=== PATIENT | male | born 1970 | race Caucasian/White ===

== ENCOUNTER → 2020-05-14 08:26 | Outpatient (BNVA) | payer SELFPAY | PROVIDERS: PCP Internal Medicine; Visit Provider Physician Assistant | DX: Z76.89 Persons encountering health services in other specified circumstances (principal) ==

== ENCOUNTER 2021-01-07 15:36 | Outpatient (REF) | payer OTHER, SELFPAY ==
--- NOTE | ~2021-01-07 | XR_ITS ---
EXAMINATION: XR KNEE, RIGHT CLINICAL INFORMATION: Pain right knee COMPARISON: Radiographs right knee 02/16/2015 TECHNIQUE: Four views of the right knee. FINDINGS: There is no fracture, dislocation, or destructive process. Again, there is tricompartment degenerative osteoarthritis with joint narrowing greatest lateral compartment. There is associated lateral chondrocalcinosis. No erosive change. Osteophytes are present from the femoral condyles and tibial plateau, increased since 2015. There is a small suprapatellar effusion. Hoffa's fat pad appears normal. There is a stable benign-appearing circumscribed oval subcortical lesion posterior lateral distal femur measuring approximately 2 x 4.8 cm. The periphery is mildly sclerotic and circumscribed in the internal portion is similar to slightly increased in attenuation. 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 No periostitis or endosteal scalloping. XR/XR knee RT 4V IMPRESSION: 1. Tricompartment osteoarthritis, greatest lateral compartment. Small suprapatellar effusion. 2. 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 No periostitis or destructive process.
== END 2021-01-07 15:37 | disposition home or self-care (01) ==
LOC: HO.HMGCX 15:36
PROVIDERS: PCP Internal Medicine; Visit Provider Hospitalist
DX: M25.561 Pain in right knee (principal)
CPT/HCPCS: 73564

== ENCOUNTER → 2021-01-11 08:07 | Outpatient (BNVA) | payer OTHER, SELFPAY | PROVIDERS: PCP Internal Medicine; Visit Provider Orthopaedic Surgery | DX: S76.111A Strain of right quadriceps muscle, fascia and tendon, initial encounter (principal); V68.4XXA Person boarding or alighting a heavy transport vehicle injured in noncollision transport accident, initial encounter; Y93.9 Activity, unspecified; Y92.9 Unspecified place or not applicable; Y99.8 Other external cause status | CPT/HCPCS: 99202 ==

== ENCOUNTER → 2021-01-24 08:05 | Outpatient (BNVA) | payer OTHER, SELFPAY | PROVIDERS: Visit Provider Physician Assistant | DX: S76.111D Strain of right quadriceps muscle, fascia and tendon, subsequent encounter (principal) | CPT/HCPCS: 99212 ==

== ENCOUNTER 2021-05-28 19:30 | Emergency (ER) | payer OTHER, SELFPAY ==
--- NOTE | 2021-05-28 19:42 | ED.EYEPROB ---
HPI - Eye Problem General Chief complaint: Eye Problems Stated complaint: Metal in eye Time Seen by Provider: 05/28/21 19:42 Source: patient Mode of arrival: ambulatory Limitations: no limitations History of Present Illness HPI Narrative: 50-year-old male no known medical history presents the emergency department with a foreign body to his left eye since 12/14 this morning. Patient tells me he was working on his car was chipping metal any felt like a small piece of metal got into his left eye. He denies vision changes, double vision, pain to the eye. He does tell me he feels as though there is a foreign body in his eye. Patient does not were contact lenses. At the time that this occurred he was wearing safety glasses however the metal came in on the side. MD chief complaint: foreign body Onset (ago): hour(s) (13) Onset description: sudden Duration: constant Location: left eye Eye Symptoms: foreign body sensation Place: home Mechanism: occurred while hammering/grinding (Grinding metal) Severity: mild Severity scale (1-10): 2 If Pain, Quality: other (Constant foreign body sensation) Associated symptoms: none Treatments Prior to Arrival: none Related Data Previous Rx's Medication Instructions Recorded prednisone 20 mg tablet 20 mg PO .COMPLEX #18 tab 01/07/21 erythromycin 5 mg/gram (0.5 %) eye 1 appl OPHTHALMIC-LEFT DAILY 7 05/28/21 ointment Days #3.5 g Allergies Allergy/AdvReac Type Severity Reaction Status Date / Time No Known Allergies Allergy Verified 01/24/21 08:09 Review of Systems Review of Systems: Constitutional : No Fever, No Chills, Cardiovascular : No Chest Pain, No SOB Respiratory : No Dyspnea Gastrointestinal : No abdominal pain HEENT: + metal in eye, no vision changes, no pain with eye moement Musculoskeletal : No Joint Swelling Skin : No rash, No skin laceration Neuro : No Weakness, No Numbness Psych : No SI/HI Yes all other systems are reviewed and are negative [facility] Past Medical History Attestation statement: The following information was validated with the patient. Source: old records reviewed and nursing notes reviewed Surgical History S/P left knee arthroscopy S/P right knee arthroscopy Social History Social History Advance Directives: No Advance Directives Information Provided: Yes Current occupational status: employed Current occupation: [employer] Physical Exam Vital Signs: Vital Signs: Last Vital Signs Temp 98.7 F 05/28/21 19:49 Pulse 68 05/28/21 19:49 Resp 16 05/28/21 19:49 BP 156/99 H 05/28/21 19:49 Pulse Ox 98 05/28/21 19:49 BMI result Body Mass Index 28.2 VSS Appearance: Alert.? Oriented X3.? No acute distress.? Head: Normocephalic, atraumatic, no step-offs or deformities Eyes: Pupils equal, round and reactive to light.? ENT: Pharynx normal.?+ fb in eye image in left eye. (I can visualize to small metal chips in the 3 o'clock position.) Fluorescein stain with no uptake bilaterally. No rust rings. Extraocular movements intact free of pain. Visual quintero by confrontation normal. Neck: Normal inspection.? Neck supple.? CVS: Normal heart rate and rhythm.? Pulses normal.? Respiratory: No respiratory distress.? Breath sounds normal.? Abdomen: Soft and nontender.? Skin: Skin warm and dry.? Normal skin color.? Normal skin turgor.? Extremities: No lower extremity edema.? No calf ttp. 5/5 strength to bilateral upper and lower extremities Back: No midline tenderness, no C-spine tenderness, full range of motion, no CVA tenderness bilaterally Neuro: Oriented X 3.? No motor deficit.? No sensory deficit. Course Reevaluation(s) Reevaluation #1: Successfully removed 2 small metal chips from patient's L. eye they were located in the 3 o'clock position no rust rings. No uptake with fluorescein stain. One was removed with a Q-tip the other 1 was removed by using an 18 gauge needle. Patient tolerated procedure well. Erythromycin ointment was applied to the affected eye. He will be discharged home on erythromycin ointment he should use this for 5-7 days. I have advised him to follow-up with ophthalmology. Time: 20:13 MDM - Eye Problem MDM Narrative Medical decision making narrative: 194 50 yo male presents to ED w/ fb in eye, thinks its metal. PE foreign body in eye Plan, fluorescein stain, Wood's lamp, removal of foreign body. Medical Records Attestation: I reviewed the patient's medical records. Lab Data Attestation: I reviewed the patient's lab results. Critical Care Time Critical Care Time Critical Care Time: No Discharge Plan Discharge Clinical Impression: Eye foreign body Qualifiers: Encounter type: initial encounter Laterality: unspecified laterality Qualified Code(s): T15.90XA - Foreign body on external eye, part unspecified, unspecified eye, initial encounter Patient Disposition: Home, Self-Care Instructions: Eye Foreign Body (ED) Additional Instructions: Take your medications as prescribed. If you were prescribed antibiotics today, it is important that you take your medication to their entirety, do not skip any doses, do not finish them early. Follow-up with your primary care provider this week. Return to the emergency department with new or worsening symptoms. In case of emergency call 911 Prescriptions: New erythromycin 5 mg/gram (0.5 %) ointment 1 appl ophthalmic-Left DAILY 7 Days Qty: 3.5 RF: 0 No Action prednisone 20 mg tablet 20 mg PO .COMPLEX Qty: 18 RF: 0 Referrals: Yakov Lal [Physician] - 2 days Alfredo Sandy MD [Primary Care Provider] - 2 days Stand Alone Forms: Work/School Release
[2021-05-28 19:49] VITALS: BP 156/99; PULSE 68; RESP 16; TEMP 37.1; O2SAT 98; BMI 28.2
[2021-05-28] MEDS: Fluorescein Sodium STRIP 1 STRIP EYE-BOTH (19:53)
[2021-05-28] MEDS: Tetracaine HCl/PF 0.5% Oph Sol 4 ML DROPS 1 DROP EYE-BOTH (19:53)
[2021-05-28] MEDS: Erythromycin Base 0.5% Oph Oin 1 GM TUBE 1 CM EYE-LEFT (20:27)
== END 2021-05-28 20:34 | disposition home or self-care (01) ==
PROVIDERS: Emergency Provider Internal Medicine; PCP Internal Medicine
DX: T15.02XA Foreign body in cornea, left eye, initial encounter (principal); H57.12 Ocular pain, left eye; X58.XXXA Exposure to other specified factors, initial encounter; Y93.9 Activity, unspecified; Y92.9 Unspecified place or not applicable; Y99.9 Unspecified external cause status; Z79.899 Other long term (current) drug therapy
CPT/HCPCS: 65222; 99283

== ENCOUNTER → 2022-05-08 13:13 | Outpatient (BNVA) | payer SELFPAY | PROVIDERS: PCP Internal Medicine; Visit Provider Physician Assistant | DX: Z02.79 Encounter for issue of other medical certificate (principal) ==

== ENCOUNTER 2023-12-08 15:49 | Outpatient (AMB) | payer OTHER, SELFPAY ==
--- OUTSIDE RECORDS SUMMARY | 2023-12-08 15:51 | XMS_ITS | Continuity of Care Document ---
Author Organization [facility] Address Unknown Care Team Providers Care Is Project Manager Name Role Phone Alfredo Sandy MD Primary Care Physician Encounter [facility] [place] [facility] R [id number] Date(s): 05/31/21 - 08/22/21 [facility] Attending Physician: Silvia Regalado MD Referring Physician: Alfredo Sandy MD Allergies, Adverse Reactions, Alerts No Known Allergies Immunizations Given and Recorded Vaccine Date Status Refusal Reason SARS-CoV-2 (COVID-19) mRNA BNT-162b2 vac 04/15/21 Recorded SARS-CoV-2 (COVID-19) mRNA BNT-162b2 vac 07/23/20 Recorded SARS-CoV-2 (COVID-19) mRNA BNT-162b2 vac 07/02/20 Recorded influenza virus vaccine, inactivated 03/01/21 Ryan rded influenza virus vaccine, inactivated 1 05/12/17 Re corded influenza virus vaccine, inactivated 2 04/09/16 Re corded Influenza Virus Vaccine (oldterm) 02/15/18 Recorde d tetanus/diphtheria/pertussis, acel(Tdap) 08/07/16 Given Tetanus Toxoid Vaccine (oldterm) 05/18/04 Given 1Result Comment: [08/10/2017] [facility] 2Result Comment: [08/07/2016] [facility] Problem List Condition Effective Dates Status Health Status Inform ant Diverticulosis, sigmoid mild/colonoscopy 2017(Confirmed) Active Ex-smoker(Confirmed) Active Family history of colon canc er mother 70(Confirmed) Active Overweight(Confirmed) Active Social History Social History Type Response Smoking Status Former smoker, quit more than 30 days ago; Tobacco use times per day: 1 PPD; Number of years: 25; Total pack years: 25; Started at age: 17; Stopped at age: 42; entered on: 09/07/18 Sex
--- OUTSIDE RECORDS SUMMARY | 2023-12-08 15:51 | XMS_ITS | Continuity of Care Document ---
Author Organization [facility] Address [address] [place] [address]- Care Team Providers Care Marshmallow Runner Name Role Phone Vika HENNESSY, Alfredo Scott Primary Care Physician [phone] Encounter [facility] [place] Date(s): 01/18/20 - 02/17/20 [facility] Adult [address] [place] [address]- [facility] Attending Physician: Admtr, Ar8 Admitting Physician: Admtr, Ar8 Referring Physician: Admtr, Ar8 Allergies, Adverse Reactions, Alerts Substance Reaction Severity Status NKA Active Immunizations Given and Recorded Vaccine Date Status Refusal Reason Influenza Virus Vaccine (oldterm) 02/15/18 Recorde d influenza virus vaccine, inactivated 1 05/12/17 Re corded influenza virus vaccine, inactivated 2 04/09/16 Re corded tetanus/diphtheria/pertussis, acel(Tdap) 08/07/16 Given Tetanus Toxoid Vaccine (oldterm) 05/18/04 Given 1Result Comment: [08/10/2017] [facility] 2Result Comment: [08/07/2016] [facility] Problem List Condition Effective Dates Status [...]
--- OUTSIDE RECORDS SUMMARY | 2023-12-08 15:51 | XMS_ITS | Continuity of Care Document ---
Author Organization [facility] Address [address] [place] [address]- Care Team Providers Care Working Foreman Name Role Phone Vika HENNESSY, Alfredo Scott Primary Care Physician Encounter [facility] [place] Date(s): 01/18/20 - 01/25/20 [facility] Adult [address] [place] [address]- [facility] Encounter Diagnosis Acute sinusitis(Discharge Diagnosis) - 01/18/20 Attending Physician: Nenita Sheldon NP Allergies, Adverse Reactions, Alerts Substance Reaction Severity Status NKA Active Immunizations Given and Recorded Vaccine Date Status Refusal Reason Influenza Virus Vaccine (oldterm) 02/15/18 Recorde d influenza virus vaccine, inactivated 1 05/12/17 Re corded influenza virus vaccine, inactivated 2 04/09/16 Re corded tetanus/diphtheria/pertussis, acel(Tdap) 08/07/16 Given Tetanus Toxoid Vaccine (oldterm) 05/18/04 Given 1Result Comment: [08/10/2017] [facility] 2Result Comment: [08/07/2016] [facility] Medications No Known Medications Problem List Condition Effective Dates Status Health Status Inform ant Diverticulosis, sigmoid mild/colonoscopy 2017(Confirmed) Active Ex-smoker(Confirmed) Active Family history of colon canc er mother 70(Confirmed) Active Overweight(Confirmed) Active Diagnosis Diagnosis Type Effective Dates Health Status Cl inical Service Informant Acute sinusitis Discharge Diagnosis 01/18/20 Vital Signs Most recent to oldest [Reference Range]: 1 Height 170.18 cm (01/18/20 7:13 AM) Weight 82.9 kg (01/18/20 7:13 AM) Oxygen Saturation [94-100 %] 97 % (01/18/20 7:13 AM) Pulse Rate [55-90 bpm] 65 bpm (01/18/20 7:13 AM) Body Mass Index [18.5-24.99] 28.62 *H* (01/18/20 7:13 AM) Blood Pressure [90-138/55-84 mm Hg] 128/ 86mm Hg (01/18/20 7:13 AM) Temperature [96.8-100.4 DegF] 98.6 DegF (01/18/20 7:13 AM) Mode of Delivery (Oxygen) Room air (01/18/20 7:13 AM) Blood pressure sites Arm, right (01/18/20 7:13 AM) Temperature Route Oral (01/18/20 7:13 AM) Weight Obtained Via Standing scale (01/18/20 7:13 AM) Social History Social History Type Response Smoking Status Former smoker, quit more than 30 days ago; Tobacco use times per day: 1 PPD; Number of years: 25; Total pack years: 25; Started at age: 17; Stopped at age: 42; entered on: 09/07/18 Sex
--- OUTSIDE RECORDS SUMMARY | 2023-12-08 15:51 | XMS_ITS | Continuity of Care Document ---
Author Organization [facility] Wally Deng Gerhard lt Address [address] [place] [address]- Care Team Providers Care Security Developer Name Role Phone Nenita Sheldon NP Primary Care Physician [phone] [place] [facility] [place](s[place] 07/28/23 - 08/04/23 [facility] Wally Deng Adult [address] [place] [address]- Encounter Diagnosis Bunion of left foot(Discharge Diagnosis) - 07/28/23 Annual physical exam(Discharge Diagnosis) - 07/28/23 Obese class I(Discharge Diagnosis) - 07/28/23 Impacted cerumen of right ear(Discharge Diagnosis) - 07/28/23 Elevated cholesterol- Low [place] Risk Score(Discharge Diagnosis) - 07/28/23 Attending Physician: Nenita Sheldon NP Referring Physician: Bridget HENNSESY, Brad Reyes Allergies, Adverse Reactions, Alerts No Known Allergies Immunizations Given and Recorded Vaccine Date Status Refusal Reason zoster vaccine, inactivated 06/05/23 Recorded zoster vaccine, inactivated 03/02/23 Recorded influenza virus vaccine, inactivated 02/19/23 Ryan rded influenza virus vaccine, inactivated 03/01/21 Ryan rded influenza virus vaccine, inactivated 03/10/19 Ryan rded influenza virus vaccine, inactivated 1 05/12/17 Re corded influenza virus vaccine, inactivated 03/09/17 Ryan rded influenza virus vaccine, inactivated 2 04/09/16 Re corded SARS-CoV-2 (COVID-19) mRNA BNT-162b2 vac 04/15/21 Recorded SARS-CoV-2 (COVID-19) mRNA BNT-162b2 vac 07/23/20 Recorded SARS-CoV-2 (COVID-19) mRNA BNT-162b2 vac 07/02/20 Recorded Influenza Virus Vaccine (oldterm) 02/15/18 Recorde d tetanus/diphtheria/pertussis, acel(Tdap) 08/07/16 Given Tetanus Toxoid Vaccine (oldterm) 05/18/04 Given 1Result Comment: [08/10/2017] [facility] 2Result Comment: [08/07/2016] [facility] Problem List Condition Confirmation Course Effective Dates Status H ealth Status Informant Bunion of left foot Confirmed Active Cervical radiculopathy Confirmed Active Diverticulosis, sigmoid mild/colonoscopy 2017 Confirmed Active Ex-smoker Confirmed Active Family history of colon cancer mother 70 Confirmed Active Elevated cholesterol- Low [place] Risk Score Confirmed Active Obese class I Confirmed Active Diagnosis Diagnosis Type Effective Dates Health Status Clinical Service Informant Annual physical exam Discharge Diagnosis 07/28/23 Obese class I Discharge Diagnosis 07/28/23 Elevated cholesterol- Low [place] Risk Score Discharge Diagnosis 07/28/23 Impacted cerumen of right ear Discharge Diagnosis 07/28/23 Bunion of left foot Discharge Diagnosis 07/28/23 Vital Signs Most recent to oldest [Reference Range]: 1 Height 170.18 cm (07/28/23 6:50 AM) Weight 90.3 kg (07/28/23 6:50 AM) Oxygen Saturation [94-100 %] 97 % (07/28/23 6:50 AM) Pulse Rate [55-90 bpm] 77 bpm (07/28/23 6:50 AM) Body Mass Index [18.5-24.99 kg/m2] 31.18 kg/m2 *>HHI* (07/28/23 6:50 AM) Blood Pressure [90-138/55-84 mm Hg] 131/ 80mm Hg (07/28/23 6:50 AM) Blood pressure sites Arm, left (07/28/23 6:50 AM) Weight Obtained Via Standing scale (07/28/23 6:50 AM) Social History Social History Type Response Smoking Status Former smoker, quit more than 30 days ago; Tobacco use times per day: 1 PPD; Number of years: 25; Total pack years: 25; Started at age: 17; Stopped at age: 42; entered on: 09/07/18 Sex Note * Donna Brar: PERFORM, SIGN, VERIFY Event Display: Patient Education/Instruction Authored Date: [id number] [facility] *BMP So Ish Stephens Clinical Summary Name SPRING CORTEZ Age 53 Years 1970 PCP [facility]en[facility] Sheld[id number] Visit Date 07/28/2023 06:40:00 Additional Instructions: Scheduled Appointments?? Future Appointments ?No Future Appointments Scheduled Follow-Up Instructions ?? With: Address: When: Nenita Sheldon NP In 1 year Diagnosis Other polyuria; Pure hypercholesterolemia, unspecified; Encounter for general adult medical examination without abnormal findings; Body mass index [BMI] 30.0- 30.9, adult; Impacted cerumen, right ear;Bunion of left foot Medications: Please continue your medications until treatment is completed or stopped by your provider. Discuss any questions related to medications with your provider. Allergy Info:?? NKA Medications Given This Visit Future Orders ?No future orders Future Orders ?Comprehensive Metabolic Panel? Order Date:07/28/23?- Complete within?Lipid Panel? Order Date:07/28/23?- Complete within?PSA Screen? Order Date:07/28/23?- Complete within?CBC? Order Date:07/28/23?- Complete within?Complete Urinalysis/Reflex Culture? Order Date:07/28/23?- Complete within? Vital Signs Height 170.18 cm Weight 90.3 kg BMI 31.18 kg/m2 Blood Pressure 131 mm Hg/80 mm Hg Temperature Pulse Rate 77 bpm Respiratory Rate 02 Sat Mode of Delivery 97 %/ You can now view a summary of your hospital visit from the comfort of your home through a free online portal called [employer]. [employer] is a website that allows you to securely view your medical information including discharge summary, medications and follow-up visits. ??You can alsosend a secure electronic message to your doctor???s office to request appointments, renew medications or just ask a question. You can enroll at [email or web address] or register during your next office visit. Disclaimer:?? The information provided is of a general nature and is intended to be used in conjunction with the recommendations and advice of your health care practitioner. ??Every effort has been made to ensure that the information provided is accurate and complete at the time it is provided to you however, as your needs change, or, as new ??information becomes available, different or additional instructions may be required. If you have questions, please consult with your primary care provider or pharmacist, as appropriate. ??This information is not intended to serve as substitution for assessment and evaluation by a qualified health care provider. If you do not have a primary care provider, you may find a [facility] provider by calling [facility] Trending Taste Link at [phone]. [facility], in keeping with [facility] guidance, no longer requires face masks for staff, patientsor visitors in most situations. Similar to time spent indoors at other locations, there is the chance that you were exposed to respiratory viruses during your time with us (such as flu or COVID-19).? If you develop symptoms concerning for a viral respiratory infection, please seek testing (and treatment if indicated) from your medical provider or home test kit. For information about the plan of care including goals and instructions for your diagnosis, please see the patient education orders section of this document. Patient Education Materials?? The content of this educational material or handout may have been modified, supplemented, or adapted from its original content and format to support your individualized medical care. Prevention Guidelines, Men Ages 50 to 64 Screening tests and vaccines are an important part of managing your health. Health counseling is essential, too. Below are guidelines for these, for men ages 50 to 64. Talk with your healthcare provider to make sure you???re up-to-date on what you need. Screening Who needs it How often Alcohol misuse All men in this age group At routine exams Blood pressure All men in this age group Every 2 years if your blood pressure is less than 120/80 mm Hg; yearly if your systolic blood pressure is 120 to 139 mm Hg, or your diastolic blood pressure reading is 80 to 89 mm Hg Colorectal cancer All men in this age group Flexible sigmoidoscopy every 5 years, or colonoscopy every 10 years, or double- contrast barium enema every 5 years; yearly fecal occult blood test or fecal immunochemical test; or a stool DNA test asoften as your healthcare provider advises; talk with your healthcare provider about which tests arebest for you Depression All men in this age group At routine exams Type 2 diabetes or prediabetes All adults beginning at age 45 and adults without symptoms at any age who are overweight or obese and have 1 or more other risk factors for diabetes At least every 3 years Hepatitis C Men at increased risk for infection ??? talk with your healthcare provider At routine exams High cholesterol or triglycerides All men in this age group At least every 5 years HIV Men at increased risk for infection ??? talk with your healthcare provider At routine exams Lung cancer Adults age 55 to 80 who have smoked Yearly screening in smokers with 30 pack-year history of smoking or who quit within 15 years Obesity All men in this age group At routine exams Prostate cancer Starting at age 45, talk to healthcare provider about risks and benefits of digital rectal exam (BERNADETTE) and prostate-specific antigen (PSA) screening1 At routine exams Syphilis Men at increased risk for infection ??? talk with your healthcare provider At routine exams Tuberculosis Men at increased risk for infection ??? talk with your healthcare provider Ask your healthcare provider Vision All men in this age group Ask your healthcare provider Vaccine Who needs it How often Chickenpox (varicella) All men in this age group who have no record of this infection or vaccine 2 doses; second dose should be given at least 4 weeks after the first dose Hepatitis A Men at increased risk for infection ??? talk with your healthcare provider 2 doses given at least 6 months apart Hepatitis B Men at increased risk for infection ??? talk with your healthcare provider 3 doses over 6 months; second dose should be given 1 month after the first dose; the third dose should be given at least 2 months after the second dose and at least 4 months after the first dose Haemophilus influenzae??Type B (HIB) Men at increased risk for infection ??? talk with your healthcare provider 1 to 3 doses Influenza (flu) All men in this age group Once a year Measles, mumps, rubella (MMR) Men in this age group through their late 50s who have no record of these infections or vaccines 1 or 2 dose; ask your healthcare provider Meningococcal Men at increased risk for infection ??? talk with your healthcare provider 1 or more doses Pneumococcal conjugate vaccine (PCV13)??and pneumococcal polysaccharide??vaccine??(PPSV23) Men at increased risk for infection ??? talk with your healthcare provider PCV13: 1 dose ages 19 to 65 (protects against 13 types of pneumococcal bacteria) ?? PPSV23: 1 to??2doses through age 64, or 1 dose at 65 or older (protects against 23 types of pneumococcal bacteria) Tetanus/diphtheria/ pertussis (Td/Tdap) booster All men in this age group Td every 10 years, or a one-time dose of Tdap instead of a Td booster after age 18, then Td every 10 years Zoster All men ages 60 and older 1 dose Counseling Who needs it How often Diet and exercise Men who are overweight or obese When diagnosed, and then at routine exams Sexually transmitted infection prevention Men at increased risk for infection ??? talk with your healthcare provider At routine exams Use of daily aspirin Men in this age group at risk for cardiovascular health problems At routine exams Use of tobacco and the health affects it can cause All men in this age group Every visit [address] [place] [address] [facility] ?? [phone] The [employer]. [address] [place] [address]. All rights reserved. This information is not intended as a substitute for professional medical care. Always follow your healthcare professional's instructions. Patient Care team information Care Team Personnel Name: Nenita Sheldon NP Position: [facility] PCO Associate Professional Member Role: PCP Address: Address: [address] [place] [address]- Care Team Related Persons Name: WILLIAN CORTEZ Address: home [address] [place] [address]
--- OUTSIDE RECORDS SUMMARY | 2023-12-08 15:51 | XMS_ITS | Continuity of Care Document ---
Author Organization [facility] Ish Gerhard lt Address [address] [place] [address]- Care Team Providers Care Cutter Woodwind Reeds Name Role Phone Vika HENNESSY, Alfredo Scott Primary Care Physician [place] [facility] [place] 07/20/21 - 08/19/21 [facility] Adult [address] [place] [address]- Allergies, Adverse Reactions, Alerts No Known Allergies [...] Vaccine (oldterm) 05/18/04 Given 1Result Comment: [08/10/2017] [facility] 2Result Comment: [08/07/2016] [facility] Problem List Condition Effective Dates Status [...]
--- OUTSIDE RECORDS SUMMARY | 2023-12-08 15:51 | XMS_ITS | Continuity of Care Document ---
Author Organization [facility] Ish Gerhard lt Address [address] [place] [address]- Care Team Providers Care Laborer Operator Name Role Phone Vika HENNESSY, Alfredo Scott Primary Care Physician Encounter [facility] [place] Date(s): 08/26/21 - 09/25/21 [facility] Adult [address] [place] [address]- Allergies, Adverse Reactions, Alerts No Known Allergies [...] Vaccine (oldterm) 05/18/04 Given 1Result Comment: [08/10/2017] [facility] 2Result Comment: [08/07/2016] [facility] Problem List Condition Effective Dates Status [...]
--- OUTSIDE RECORDS SUMMARY | 2023-12-08 15:51 | XMS_ITS | Continuity of Care Document ---
Author Organization [facility] Ish Gerhard lt Address [address] [place] [address]- Care Team Providers Care Cat Sitter Name Role Phone Vika HENNESSY, Alfredo Scott Primary Care Physician Encounter [facility] [place] Date(s): 07/10/20 - 07/17/20 [facility] Adult [address] [place] [address]- Attending Physician: Patrick Camacho MD Referring Physician: Alfredo Sandy MD Allergies, Adverse Reactions, Alerts Substance Reaction Severity Status NKA Active Immunizations Given and Recorded Vaccine Date Status Refusal Reason Influenza Virus Vaccine (oldterm) 02/15/18 Recorde d influenza virus vaccine, inactivated 1 05/12/17 Re corded influenza virus vaccine, inactivated 2 04/09/16 Re corded tetanus/diphtheria/pertussis, acel(Tdap) 08/07/16 Given Tetanus Toxoid Vaccine (oldterm) 05/18/04 Given 1Result Comment: [08/10/2017] [facility] 2Result Comment: [08/07/2016] [facility] Medications Augmentin 875 mg-125 mg oral tablet 1 tablet, By Mouth, Every 12 hours, # 14 tablet, 0 Refills, Maintenance, 07/10/20 14:25:00 EST, [facility]/pharmacy #[id number], Partial fill upon patient request if the prescription is for a schedule II opioid drug., 170.18, cm, 07/10/20 13:00:00 EST, Height Start Date: 07/10/20 Status: Ordered Problem List Condition Effective Dates Status Health Status Inform ant Diverticulosis, sigmoid mild/colonoscopy 2017(Confirmed) Active Ex-smoker(Confirmed) Active Family history of colon canc er mother 70(Confirmed) Active Overweight(Confirmed) Active Vital Signs Most recent to oldest [Reference Range]: 1 Height 170.18 cm (07/10/20 1:00 PM) Social History Social History Type Response Smoking Status Former smoker, quit more than 30 days ago; Tobacco use times per day: 1 PPD; Number of years: 25; Total pack years: 25; Started at age: 17; Stopped at age: 42; entered on: 09/07/18 Sex
--- OUTSIDE RECORDS SUMMARY | 2023-12-08 15:51 | XMS_ITS | Continuity of Care Document ---
Author Organization [facility] Ish Gerhard lt Address [address] [place] [address]- Care Team Providers Care Microbiology Instructor Name Role Phone Vika HENNESSY, Alfredo Scott Primary Care Physician Encounter [facility] Date(s): 07/19/21 - 07/26/21 [facility] Adult [address] [place] [address]- Encounter Diagnosis Annual physical exam(Discharge Diagnosis) - 07/18/21 Overweight(Discharge Diagnosis) - 07/18/21 Attending Physician: Nenita Sheldon NP Referring Physician: Vika HENNESSY, Alfredo Scott Allergies, Adverse Reactions, Alerts No Known Allergies [...] Vaccine (oldterm) 05/18/04 Given 1Result Comment: [08/10/2017] [facility] 2Result Comment: [08/07/2016] [facility] Medications No Known Medications Problem List Condition Effective Dates Status Health Status Inform ant Diverticulosis, sigmoid mild/colonoscopy 2017(Confirmed) Active Ex-smoker(Confirmed) Active Family history of colon canc er mother 70(Confirmed) Active Overweight(Confirmed) Active Diagnosis Diagnosis Type Effective Dates Health Status Clinical Service Informant Annual physical exam Discharge Diagnosis 07/18/21 Overweight Discharge Diagnosis 07/18/21 Vital Signs Most recent to oldest [Reference Range]: 1 Height 170.18 cm (07/19/21 7:24 AM) Weight 84.7 kg (07/19/21 7:24 AM) Oxygen Saturation [94-100 %] 98 % (07/19/21 7:24 AM) Pulse Rate [55-90 bpm] 79 bpm (07/19/21 7:24 AM) Body Mass Index [18.5-24.99] 29.25 *H* (07/19/21 7:24 AM) Blood Pressure [90-138/55-84 mm Hg] 114/ 70mm Hg (07/19/21 7:24 AM) Respiratory Rate [16-30 br/min] 14 br/mi n *L* (07/19/21 7:24 AM) Temperature [96.8-100.4 DegF] 97.8 DegF (07/19/21 7:24 AM) Mode of Delivery (Oxygen) Room air (07/19/21 7:24 AM) Blood pressure sites Arm, right (07/19/21 7:24 AM) Temperature Route Oral (07/19/21 7:24 AM) Weight Obtained Via Standing scale (07/19/21 7:24 AM) Social History Social History Type Response Smoking Status Former smoker, quit more than 30 days ago; Tobacco use times per day: 1 PPD; Number of years: 25; Total pack years: 25; Started at age: 17; Stopped at age: 42; entered on: 09/07/18 Sex
--- OUTSIDE RECORDS SUMMARY | 2023-12-08 15:51 | XMS_ITS | Continuity of Care Document ---
Author Organization [facility] Gerhard Address [address] [place] [address]- Care Team Providers Care Esthetician/Spa Coordinator Name Role Phone Vika HENNESSY, Alfredo Scott Primary Care Physician [phone] [place] [facility] [place] 07/10/20 - 08/09/20 [facility] Adult [address] [place] [address]- Attending Physician: Admtr, Ar8 Admitting Physician: Admtr, [...] Vaccine (oldterm) 05/18/04 Given 1Result Comment: [08/10/2017] [facility] 2Result Comment: [08/07/2016] [facility] Medications Augmentin 875 mg-125 mg oral tablet 1 tablet, By Mouth, Every 12 hours, # 14 tablet, 0 Refills, Maintenance, 07/10/20 14:25:00 EST, [facility]/pharmacy #[id number], Partial fill upon patient request if the [...]
--- OUTSIDE RECORDS SUMMARY | 2023-12-08 15:51 | XMS_ITS | Continuity of Care Document ---
Author Organization [facility] Gerhard lt Address [address] [place] [address]- Care Team Providers Care Capacity Analyst Name Role Phone Pito INSTRUCTIONAL MATERIAL DIRECTOR, Nenita Groves Primary Care Physician Encounter [facility] Date(s): 07/22/22 - 08/21/22 [facility] Adult [address] [place] [address]- Allergies, Adverse Reactions, Alerts No Known Allergies [...] [08/10/2017] [facility] 2Result Comment: [08/07/2016] [facility] Problem List Condition Confirmation Course Effective Dates Status H ealth Status Informant Cervical radiculopathy Confirmed Active Diverticulosis, sigmoid mild/colonoscopy 2017 Confirmed Active Ex-smoker Confirmed Active Family history of colon cancer mother 70 Confirmed Active Elevated cholesterol- Low [place] Risk Score Confirmed Active Obese class I Confirmed Active Social History Social History Type Response Smoking Status Former smoker, quit more than 30 days ago; Tobacco use times per day: 1 PPD; Number of years: 25; Total pack years: 25; Started at age: 17; Stopped at age: 42; entered on: 09/07/18 Sex Patient Care team information Care Team Personnel Name: Nenita Sheldon NP Position: S PCO Associate Professional Member Role: PCP Address: Address: [address] [place] [address]- Care Team Related Persons Name: WILLIAN CORTEZ Address: home [address] [place] [address]
--- OUTSIDE RECORDS SUMMARY | 2023-12-08 15:51 | XMS_ITS | Continuity of Care Document ---
Author Organization [facility] Address Unknown Care Team Providers Care Manager Collection Name Role Phone Alfredo Sandy MD Primary Care Physician [place] [facility] [id number] Date(s): 08/13/21 - 08/20/21 [facility] Attending Physician: Silvia Regalado MD [...] Vaccine (oldterm) 05/18/04 Given 1Result Comment: [08/10/2017] [facility] 2Result Comment: [08/07/2016] [facility] Medications No Known Medications Problem List Condition Effective Dates Status Health Status Inform ant Diverticulosis, sigmoid mild/colonoscopy 2017(Confirmed) Active Ex-smoker(Confirmed) Active Family history of colon canc er mother 70(Confirmed) Active Overweight(Confirmed) Active Vital Signs Most recent to oldest [Reference Range]: 1 Height 170.18 cm (08/13/21 2:50 PM) Weight 84.6 kg (08/13/21 2:50 PM) Pulse Rate [55-90 bpm] 75 bpm (08/13/21 2:50 PM) Body Mass Index [18.5-24.99] 29.21 *H* (08/13/21 2:50 PM) Blood Pressure [90-138/55-84 mm Hg] 115/ 80mm Hg (08/13/21 2:50 PM) Blood pressure sites Arm, left (08/13/21 2:50 PM) Weight Obtained Via Bed scale (08/13/21 2:50 PM) Social History Social History Type Response Smoking Status Former smoker, quit more than 30 days ago; Tobacco use times per day: 1 PPD; Number of years: 25; Total pack years: 25; Started at age: 17; Stopped at age: 42; entered on: 09/07/18 Sex
--- OUTSIDE RECORDS SUMMARY | 2023-12-08 15:51 | XMS_ITS | Continuity of Care Document ---
Author Organization [facility] Ish Gerhard lt Address [address] [place] [address]- Care Team Providers Care Certified Orthotist Practice Manager Name Role Phone Pito GETTERER, Nenita Groves Primary Care Physician Encounter [facility] Date(s): 01/02/22 - 02/01/22 [facility] Adult [address] [place] [address]- Allergies, Adverse Reactions, Alerts No Known Allergies [...] Vaccine (oldterm) 05/18/04 Given 1Result Comment: [08/10/2017] [facility] 2Result Comment: [08/07/2016] [facility] Problem List Condition Effective Dates Status [...] at age: 42; entered on: 09/07/18 Sex Care Team Personnel Name: Pito PETERSON, Nenita Groves Address: [address] [place] [address] Adult [place], [place] [address]
--- OUTSIDE RECORDS SUMMARY | 2023-12-08 15:52 | XMS_ITS | Continuity of Care Document ---
Author Organization [facility] Address Unknown Care Team Providers Care Risk Assessment Analyst Name Role Phone Vika HENNESSY, Alfredo Scott Primary Care Physician Encounter [facility] [place] Date(s): 07/23/21 - 08/22/21 [facility] Attending Physician: Admjohn, Madisyn Admitting Physician: AdmtrMadisyn Referring Physician: Admtr, Ar8 Allergies, Adverse Reactions, Alerts No Known Allergies [...] Vaccine (oldterm) 05/18/04 Given 1Result Comment: [08/10/2017] [facility] 2Result Comment: [08/07/2016] [facility] Problem List Condition Effective Dates Status [...]
--- OUTSIDE RECORDS SUMMARY | 2023-12-08 15:52 | XMS_ITS | Continuity of Care Document ---
Author Organization [facility] Ish Gerhard lt Address [address] [place] [address]- Care Team Providers Care Solar Sales Energy Advisor Name Role Phone Vika HENNESSY, Alfredo Scott Primary Care Physician [facility]counter [facility] Date(s): 01/17/20 - 02/16/20 [facility] Adult [address] [place] [address]- [facility] Allergies, Adverse Reactions, Alerts Substance Reaction Severity Status NKA Active Immunizations Given and Recorded Vaccine Date Status Refusal Reason Influenza Virus Vaccine (oldterm) 02/15/18 Recorde d influenza virus vaccine, inactivated 1 05/12/17 Re corded influenza virus vaccine, inactivated 2 04/09/16 Re corded tetanus/diphtheria/pertussis, acel(Tdap) 08/07/16 Given Tetanus Toxoid Vaccine (oldterm) 05/18/04 Given 1Result Comment: [08/10/2017] [facility] 2Result Comment: [08/07/2016] [facility] Problem List Condition Effective Dates Status Health [...]
--- OUTSIDE RECORDS SUMMARY | 2023-12-08 15:52 | XMS_ITS | Continuity of Care Document ---
Author Organization [facility] Gerhard lt Address [address] [place] [address]- Care Team Providers Care Production Sampler Name Role Phone Nenita Sheldon NP Primary Care Physician Encounter [facility] Date(s): 07/22/22 - 07/29/22 [facility] [place] Adult [address] [place] [address]- Encounter Diagnosis Annual physical exam(Discharge Diagnosis) - 07/21/22 Elevated cholesterol- Low [place] Risk Score(Discharge Diagnosis) - 07/21/22 Obese class I(Discharge Diagnosis) - 07/22/22 Attending Physician: Nenita Sheldon NP Allergies, Adverse Reactions, Alerts No Known Allergies [...] Vaccine (oldterm) 05/18/04 Given 1Result Comment: [08/10/2017] [facility] 2Result Comment: [08/07/2016] [facility] Medications No Known Medications Problem List Condition Confirmation Course Effective Dates Status H ealth Status Informant Cervical radiculopathy Confirmed Active Diverticulosis, sigmoid mild/colonoscopy 2017 Confirmed Active Ex-smoker Confirmed Active Family history of colon cancer mother 70 Confirmed Active Elevated cholesterol- Low [place] Risk Score Confirmed Active Obese class I Confirmed Active Diagnosis Diagnosis Type Effective Dates Health Status Clinical Service Informant Annual physical exam Discharge Diagnosis 07/21/22 Elevated cholesterol- Low [place] Risk Score Discharge Diagnosis 07/21/22 Non-Specified Obese class I Discharge Diagnosis 07/22/22 Vital Signs Most recent to oldest [Reference Range]: 1 Height 170.18 cm (07/22/22 6:51 AM) Weight 89.9 kg (07/22/22 6:51 AM) Oxygen Saturation [94-100 %] 97 % (07/22/22 6:51 AM) Pulse Rate [55-90 bpm] 75 bpm (07/22/22 6:51 AM) Body Mass Index [18.5-24.99 kg/m2] 31.04 kg/m2 *>HHI* (07/22/22 6:51 AM) Blood Pressure [90-138/55-84 mm Hg] 122/ 70mm Hg (07/22/22 6:51 AM) Mode of Delivery (Oxygen) Room air (07/22/22 6:51 AM) Weight Obtained Via Standing scale (07/22/22 6:51 AM) Social History Social History Type Response Smoking Status Former smoker, quit more than 30 days ago; Tobacco use times per day: 1 PPD; Number of years: 25; Total pack years: 25; Started at age: 17; Stopped at age: 42; entered on: 09/07/18 Sex Note * Marivel Nath: PERFORM, SIGN, VERIFY Event Display: Patient Education/Instruction Authored Date: [id number] [facility] *BMP So Ish Stephens Clinical Summary Name SPRING CORTEZ Age 52 Years 1970 [facility]CP [id number] Visit Date 07/22/2022 06:49:00 Additional Instructions: Scheduled Appointments?? Future Appointments ?No Future Appointments Scheduled Follow-Up Instructions ?? With: Address: When: Nenita Sheldon NP In 1 year Diagnosis Encounter for general adult medical examination without abnormal findings; Pure hypercholesterolemia, unspecified; Body mass index [BMI] 30.0-30.9, adult Medications: Please continue your medications until treatment is completed or stopped by your provider. Discuss any questions related to medications with your provider. Allergy Info:?? NKA Medications Given This Visit Future Orders ?No future orders Vital Signs Height 170.18 cm Weight 89.9 kg BMI 31.04 kg/m2 Blood Pressure 122 mm Hg/70 mm Hg Temperature Pulse Rate 75 bpm Respiratory Rate 02 Sat Mode of Delivery 97 %/Room air You can now view a summary of your hospital visit from the comfort of your home through a free online portal called [employer]. [employer] is a website that allows you to securely view your medical information including discharge summary, medications and follow-up visits. ??You can alsosend a secure electronic message to your doctor???s office to request appointments, renew medications or just ask a question. You can enroll at [email or web address] or register during your next office visit. [...] primary care provider, you may find a [facility] provider by calling [facility] at [phone]. For information about the plan of care [...] men in this age group Every visit [address] [place] [address] [facility] ?? [phone] [employer]. [address] [place] [address], [place] [address]. All rights reserved. This information is not intended as a substitute for professional medical care. Always follow your healthcare professional's instructions. Patient Care team information Care Team Personnel Name: Nenita Sheldon NP Position: S PCO Associate Professional Member Role: PCP Address: Address: [address] [place] [address]- Care Team Related Persons Name: WILLIAN CORTEZ Address: home [address] [place] [address]
--- OUTSIDE RECORDS SUMMARY | 2023-12-08 15:52 | XMS_ITS | Continuity of Care Document ---
Author Organization [facility] Address Unknown Care Team Providers Care Clinical Quality Manager Name Role Phone Vika HENNESSY, Alfredo Scott Primary Care Physician [phone] [id number]13/21 - 09/12/21 [facility] Attending Physician: Admjohn, Madisyn [...] Vaccine (oldterm) 05/18/04 Given 1Result Comment: [08/10/2017] [facility] 2Result Comment: [08/07/2016] [facility] Problem List Condition Effective Dates Status [...]
--- OUTSIDE RECORDS SUMMARY | 2023-12-08 15:52 | XMS_ITS | Continuity of Care Document ---
Author Organization [facility] Wally Deng Gerhard lt Address [address] [place] [address]- Care Team Providers Care Geomorphologist Name Role Phone Pito DOCTOR NATUROPATHIC, Nenita Groves Primary Care Physician [phone] Encounter [facility] Date(s): 07/29/23 - 08/28/23 [facility] Wally Riceley Adult [address] [place] [address]- Allergies, Adverse Reactions, Alerts No Known Allergies [...] Vaccine (oldterm) 05/18/04 Given 1Result Comment: [08/10/2017] [facility] 2Result Comment: [08/07/2016] [facility] Problem List Condition Confirmation Course Effective Dates Status H ealth Status Informant Bunion of left foot Confirmed Active Cervical radiculopathy Confirmed Active Diverticulosis, sigmoid mild/colonoscopy 2017 Confirmed Active Ex-smoker Confirmed Active Family history of colon cancer mother 70 Confirmed Active Elevated cholesterol- Low [place] Risk Score Confirmed Active Obese class I Confirmed Active Social History Social History Type Response Smoking Status Former smoker, quit more than 30 days ago; Tobacco use times per day: 1 PPD; Number of years: 25; Total pack years: 25; Started at age: 17; Stopped at age: 42; entered on: 09/07/18 Sex Patient Care team information Care Team Personnel Name: Pito PETERSON, Nenita Groves Position: [facility] PCO Associate Professional Member Role: PCP Address: Address: [address] [place] [address]- Care Team Related Persons Name: WILLIAN CORTEZ Address: home [address] [place] [address]
[2023-12-08 15:59] VITALS: BP 150/82; PULSE 78; TEMP 36.6; O2SAT 98; BMI 29.0
--- NOTE | 2023-12-08 15:59 | MHC.OFFWIV ---
Intake Vital Signs 12/08/23 15:59 Height 5 ft 6 in Weight 180 lb BMI 29.0 BP 150/82 H Blood Pressure Location Lt brachial Position Sitting Pulse 78 Pulse Source Pulse Oximeter Temp 97.9 F Temp Source Oral Pulse Oximetry (%) 98 Oxygen Delivery Method Room Air Intake Visit Reasons: EP RT ear pain Patient Tobacco Use Status: Never used Tobacco Allergies No Known Allergies Allergy (Verified 12/08/23 15:59) Do you need a note to return to daycare/school/sports/work: Yes HPI HPI Comments History of Present Illness Details Patient is a 53yo M who presents to office with R ear pain Ongoing x 5 days 6 months ago had similar issue unresolved by antibiotics and was seen by ENT who said no OM Pt states intermittent discomfort to area No sharp pain Denies drainage from ear, fever or chills Denies URI symptoms recently Has not tried anything for his symptoms Denies L ear symptoms PFSH Surgical History S/P left knee arthroscopy S/P right knee arthroscopy Social History Patient Tobacco Use Status: Never used Tobacco Current occupational status: employed Current occupation: rt handed/[employer] Review of Systems Const Denies chills and Denies fever(s) ENT Reports otalgia, Denies nasal discharge, Denies sinus pain and Denies sore throat Resp Denies cough Musc Reports other (7 weeks post op L knee surgery) Physical Exam Vital Signs: Last Vital Signs Temp 97.9 F 12/08/23 15:59 Pulse 78 12/08/23 15:59 BP 150/82 H 12/08/23 15:59 Pulse Ox 98 12/08/23 15:59 Oxygen Delivery Method Room Air 12/08/23 15:59 BMI result Body Mass Index 29.0 General: Non-toxic, NAD. Speaking full sentences. Skin: Warm dry throughout. No neck or periauricular edema, erythema or lesions Eye: EOMI HENT: Airway patent. Uvula midline. No pharyngeal erythema or edema. No REMOTE ENCODING CENTER MANAGER. Bilateral canals clear. No cerumen. L TM non-erythematous, non-bulging. Pt has slight erythema noted along posterior R canal where canal meets the TM. The Tm has minimal erythema at this location and there is no associated TM bulging. No TM perforation or hemotympanum noted bilaterally. Respiratory: No respiratory distress Neurology: A/O. No aphasia or facial droop. Gait without abnormality Psych: Good mood and affect Assessment & Plan Assessment & Plan (1) Otalgia of right ear: Code(s): H92.01 - Otalgia, right ear Plan: Patient seen and evaluated. No OE or cerumen impaction on exam He has some irritation at the posterior TM without overt OM diagnosis Discussed findings with pt and he will trial anti-inflammatories x 3-4 days prior to initiation of antibiotics Amoxicillin sent to pharmacy if no improvment Patient gave verbal understanding and had no additional questions or concerns at time of discharge All questions answered Medications: New amoxicillin 875 mg PO BID 14 tabs 0RF Coding Level of Care Code Est Pt Level 3 (05219) Diagnoses Otalgia of right ear H92.01
== END 2023-12-08 16:37 | disposition home or self-care (01) ==
PROVIDERS: PCP Internal Medicine; Visit Provider Physician Assistant
DX: H92.01 Otalgia, right ear (principal)
CPT/HCPCS: 99213